=== PATIENT | male | born 1935 ===

== ENCOUNTER 2016-11-09 02:44 | Inpatient (IN) | payer MEDICARE, OTHER ==
--- NOTE | 2016-11-09 03:09 | ER Document Report ---
ED General - General Stated Complaint: WEAKNESS Notes: Patient is an 81-year-old male who presents for complaints of strokelike symptoms. Patient says he woke up with weakness in his legs and difficulty getting out of bed. Patient says his leg weakness is now almost completely resolved and he feels better. Had no other symptoms. Patient says he was admitted to [facility] one week ago with same symptoms. At that time he had a stroke workup which showed evidence of a stroke. An MRI at that time which showed the stroke. He also had carotid Dopplers and says he had the echocardiogram performed. Patient is on a look was. He does have atrial fibrillation. The atrial fibrillation appears to be paroxysmal. Denies any chest pain or shortness of breath. He has no other complaints at this time and says he feels well. He denies headache. - Related Data Allergies/Adverse Reactions: No Known Allergies Allergy (Unverified 11/09/16 03:26) Past Medical History - Social History Smoking Status: Unknown if Ever Smoked Frequency of alcohol use: None Drug Abuse: None Family History: Reviewed & Not Pertinent Review of Systems - Review of Systems Notes: My Normal Review Basic REVIEW OF SYSTEMS: CONSTITUTIONAL : Denies fever, chills, or sweats. Denies recent illness. EENT: Denies eye, ear, throat, or mouth pain or symptoms. Denies nasal or sinus congestion. CARDIOVASCULAR: Denies chest pain. RESPIRATORY: Denies cough, cold, or chest congestion. Denies shortness of breath, difficulty breathing, or wheezing. GASTROINTESTINAL: Denies abdominal pain. Denies nausea, vomiting, or diarrhea. Denies constipation. Last BM: GENITOURINARY: Denies difficulty urinating, painful urination, burning, frequency, or blood in urine. MUSCULOSKELETAL: Denies neck or back pain or joint pain or swelling. SKIN: Denies rash or skin lesions. NEUROLOGICAL: Denies altered mental status or loss of consciousness. Denies headache. Denies weakness or paralysis or loss of use of either side. Difficulty ambulating. ALL OTHER SYSTEMS REVIEWED AND NEGATIVE. Physical Exam - Vital signs Vitals: Pulse Resp BP Pulse Ox 111 H 20 148/72 H 94 11/09/16 02:44 11/09/16 02:44 11/09/16 02:44 11/09/16 02:44 - Notes Notes: General Appearance: Well nourished, alert, cooperative, no acute distress, no obvious discomfort. Well appearing. Vitals: reviewed, See vital signs table. Head: no swelling or tenderness to the head Eyes: PERRL, EOMI, Conjuctiva clear Mouth: No decreasd moisture Throat: No tonsillar inflammation, No airway obstruction, No lymphadenopathy Neck: Supple, no neck tenderness, No thyromegaly Lungs: No wheezing, No rales, No rhonci, No accessory muscle use, good air exchange bilaterally. Heart: Normal rate, irregular rythm, No murmur, no rub Abdomen: Normal BS, soft, No rigidity, No abdominal tenderness, No guarding, no rebound, no abdominal masses, no organomegaly Extremities: strength 5/5 in all extremities, good pulses in all extremities, no swelling or tenderness in the extremities, no edema. Skin: warm, dry, appropriate color, no rash Neuro: speech clear, oriented x 3, normal affect, responds appropriately to questions. Cranial nerves II through XII are intact. Distal sensation intact. Patient moves all extremities without difficulty. Patient is able stand and bear weight on his own without difficulty. Course - Re-evaluation Re-evalutation: 11/09/16 04:56 I did reevaluate the patient. He cases say that his symptoms are gone and he feels well. We're awaiting the CT scan results of his head. - Vital Signs Vital signs: Temp Pulse Resp BP Pulse Ox 97.7 F 111 H 19 148/72 H 94 11/09/16 03:19 11/09/16 02:44 11/09/16 03:00 11/09/16 02:57 11/09/16 03:00 - Laboratory Result Diagrams: 11/09/16 03:08 11/09/16 03:08 Laboratory results interpreted by me: 11/09/16 03:08 Hgb 12.4 L Hct 36.9 L RDW 14.9 H - EKG Interpretation by Me Additional EKG results interpreted by me: 11/09/16 03:26 EKG is reviewed and interpreted by me. EKG shows A. fib with rate of [address] segment elevation or depression. No ischemic T wave inversions. QRS duration is within normal range. QTc interval is prolonged. No old EKG available for comparison. - Transfer of Care Notes: 11/09/16 05:52 Patient says he is feeling better however when I went to reevaluate him and to discharge him and stand him, he was very wobbly on his feet and could not stand up safely on his own. I again asked patient to make sure that he was not like this when he left [facility]. Patient says that he is walking perfectly normal when left [facility] that the symptoms are tonight. She again initially thought using better when he first arrived and seemed well when he first stood up when he first got here however he is reverting back to having difficulty ambulating again. Patient is on TPA candidate. His last known completely normal as 9:30 PM last night. He is also on nonreversible anticoagulants which make him not a TPA candidate. I did talk to patient about admission. I informed him I think it's appropriate to admit him being that he is able stand or walk on his own and the fact that his gait is worsening. Patient does agree to stay in hospital. I did speak with the hospitalist who agrees to admit the patient. Dictation of this chart was performed using voice recognition software; therefore, there may be some unintended grammatical errors. Discharge - Discharge Clinical Impression: Atrial fibrillation Qualifiers: Atrial fibrillation type: chronic Qualified Code(s): I48.2 - Chronic atrial fibrillation TIA (transient ischemic attack) Qualifiers: Transient cerebral ischemia type: unspecified Qualified Code(s): G45.9 - Transient cerebral ischemic attack, unspecified Condition: Good Disposition: ADMITTED INPATIENT Admitting Provider: Hospitalist Unit Admitted: Telemetry
[2016-11-09 03:22] LABS: ABSOLUTE BASOPHILS # (AUTO) 0.1 10^3/uL (0.0-0.2); ABSOLUTE EOSINOPHILS # (AUTO) 0.5 10^3/uL (0.0-0.6); ABSOLUTE LYMPHOCYTES (AUTO) 1.8 10^3/uL (0.5-4.7); ABSOLUTE MONOCYTES (AUTO) 0.8 10^3/uL (0.1-1.4); ABSOLUTE NEUT (AUTO) 5.7 10^3/uL (1.7-8.2); BASOPHILS % (AUTO) 0.9 % (0-2); EOSINOPHILS % (AUTO) 5.9 % (0-6); HEMATOCRIT 36.9 % (37.9-51.0); HEMOGLOBIN 12.4 g/dL (13.5-17.0); HGB HCT DIFFERENCE 0.3; LYMPHOCYTES % (AUTO) 19.9 % (13-45); MEAN CORPUSCULAR HEMOGLOBIN 28.1 pg (27.0-33.4); MEAN CORPUSCULAR HGB CONC 33.6 g/dL (32.0-36.0); MEAN CORPUSCULAR VOLUME 84 fl (80-97); MONOCYTES % (AUTO) 8.8 % (3-13); RED BLOOD COUNT 4.42 10^6/uL (4.35-5.55); RED CELL DISTRIBUTION WIDTH 14.9 % (11.5-14.0); SEGMENTED NEUTROPHILS % (AUTO) 64.5 % (42-78); WHITE BLOOD COUNT 8.9 10^3/uL (4.0-10.5)
[2016-11-09 03:35] LABS: ANION GAP 9 (5-19); BLOOD UREA NITROGEN 15 mg/dL (7-20); CALCIUM 8.9 mg/dL (8.4-10.2); CARBON DIOXIDE 26 mmol/L (22-30); CHLORIDE 104 mmol/L (98-107); CREATININE RESULT 0.89 mg/dL (0.52-1.25); GLUCOSE 79 mg/dL (75-110); POTASSIUM 4.6 mmol/L (3.6-5.0); SODIUM 138.8 mmol/L (137-145)
[2016-11-09 06:12] LABS: ADD ON TESTING BLD IN LAB ACKNOWLEDGE
[2016-11-09 06:18] LABS: PROTHROMBIN TIME 14.3 SEC (11.4-15.4)
[2016-11-09 06:19] LABS: PARTIAL THROMBOPLASTIN TIME 38.9 SEC (23.5-35.8)
[2016-11-09 06:21] LABS: ALANINE AMINOTRANSFERASE 27 U/L (21-72); ALBUMIN 3.5 g/dL (3.5-5.0); ALKALINE PHOSPHATASE 80 U/L (38-126); ASPARTATE AMINO TRANSFERASE 18 U/L (17-59); BILIRUBIN,TOTAL 0.6 mg/dL (0.2-1.3); CHOLESTEROL 115.48 mg/dL (0-200); CREATINE KINASE 48 U/L (55-170); Direct HDL 39 mg/dL (>40); TOTAL PROTEIN 6.2 g/dL (6.3-8.2); TRIGLYCERIDES 92 mg/dL (<150)
[2016-11-09 06:32] LABS: DIRECT LDL 56 mg/dL (<100)
[2016-11-09 06:33] LABS: CREATINE KINASE MB 0.93 ng/mL (<4.55)
[2016-11-09 06:34] LABS: TROPONIN I < 0.012 ng/mL
[2016-11-09] MEDS ORDERED: DEXTROSE 5%-NORMAL SALINE 1,000 ML IV PRN (07:21)
[2016-11-09] MEDS ORDERED: ACETAMINOPHEN 325 MG TABLET PO PRN (07:38)
--- NOTE | 2016-11-09 08:09 | PDOC H&P ---
History of Present Illness Admission Date/PCP: 11/09/16 06:35 PEYTON VANESSA MD [facility] Dr. Kevin Wang, [facility] Dr. Salo Cordon, [facility]--1st appt. pending Patient complains of: strokelike symptoms History of Present Illness: LETICIA LANG is a 81 year old male with underlying hypertension, hypothyroidism, hyperlipidemia, COPD, chronic atrial fibrillation , on amiodarone and Eliquis for same, and type I diabetes mellitus, who presents to the emergency room for evaluation of above complaint. Was hospitalized at [facility] last week for sudden onset of bilateral lower extremity weakness and vision loss in his right eye. Workup there included MRI revealing a left precentral gyrus stroke as well as carotid artery Doppler revealing 50-69% stenosis of the left proximal internal carotid artery. At the time of discharge from [facility], patient states he was ambulating quite well, and had no vision complaints. Written document from [facility] reviewed; had copy. He awoke early this morning with similar complaints of ambulatory dysfunction, but no vision problems. Came to the emergency room for further evaluation. Apparently his symptoms completely resolved initially in the emergency room. However, after CT scan of the brain was obtained which revealed no acute findings, repeat examination in terms of ambulation by the emergency room physician revealed recurrence of his ambulatory dysfunction. Quite unstable on his feet, wobbly. Hospitalist service was then contacted for further evaluation. No vision complaints this time. No other associated symptoms such as headache, chest or abdominal pain. Mild nausea but no vomiting. No diarrhea or dysuria, fever or chills. States he feels fine, with no complaints until he attempts to walk, when he has the wobbly, quite unsteady sensation. Other than as noted above, no history of seizure stroke TIA or mini stroke. Patient has been discussed with emergency room physician who evaluated the patient. . [facility] and are reviewed. X-ray summary results are listed below, with full report(s) reviewed. . EKG reviewed. No old EKG available for comparison. Social history/personal habits: . Has adult children. Retired. No use of alcohol tobacco or illicit drugs. Allergies/adverse reactions NKDA. Home medications are reviewed from a list provided at time of discharge from [facility] last week and are to be reconciled by nursing staff in [facility]. Home medications initially autopopulated into [employer] may not accurately reflect patient's true medications, dosages, and/or frequencies. Compliant with medications. REVIEW OF SYSTEMS: Constitutional: No fever or chills. Eyes: Wears glasses. ENT: No swallowing problems or complaints. Partial hearing loss. Pulmonary: No current complaints. Cardiovascular: No current complaints, including chest pain. Gastrointestinal: See history and present illness. Skin: No current complaints, including rashes. Hematologic: Easy bruising. Neurologic: See history and present illness. Musculoskeletal: No current complaints, including painful joints. Psychiatric: No current complaints, including anxiety or depression. Endocrine: No current complaints, including polyuria. Genitourinary: No current complaints, including dysuria. PHYSICAL EXAMINATION: 5 feet 8 inches tall. 95.8 kg. BMI 32.1 kg/m. Temperature 97.7. Blood pressure 133/68. Pulse 64 and regular. 97% saturation on room air. Respirations are 16 and unlabored. Slightly overweight otherwise well-nourished well-developed elderly male, appearing approximately stated age. Pleasant awake alert and cooperative. No obvious distress other than somewhat anxious. is present at his side; patient approves. Skin is warm and dry. No grossly obvious evidence of rash in areas of skin examined. No subcutaneous nodules palpated. ENT: Hearing grossly normal to normal conversation. Tongue midline on protrusion pink and slightly moist. Eyes: No scleral icterus. Pupils equal and reactive to light at 4 mm. [place] conjunctivae. Neck is supple and nontender to gentle active range of motion and palpation. Midline trachea. No palpable thyroid nodule mass enlargement or tenderness. Lymphatic: No palpable cervical or clavicular nodes. Neck and lymphatic exams limited by patient body habitus. Psychiatric: Reasonable insight into acute and chronic medical issues. Oriented to time location and why here. Lungs: Auscultation reveals clear and equal breath sounds bilaterally. No use of accessory respiratory muscles. Cardiovascular: Heart regular rate and rhythm, without gallop murmur or rub. No carotid or abdominal aortic bruits. No ankle or pedal edema. Faintly palpable dorsalis pedis pulses. Abdomen: soft, somewhat obese, nontender with positive bowel sounds. Unable to adequately evaluate abdomen for masses or organomegaly due to body habitus. Extremities: Feet are warm and dry. No calf tenderness to compression. No grossly obvious visual evidence of calf swelling. Gentle manipulation of lower extremities fails to reveal any obvious evidence of injury or instability to knees hips or ankles. Neurologic: Cranial Nerves II through XII are grossly intact. Light touch intact at face, upper and lower extremities. Motor function of major muscle groups upper and lower extremities 5 over 5 and symmetric. Patellar reflexes absent. Absent Babinski. Past Medical History Cardiac Medical History: Reports: Atrial Fibrillation, Hyperlipidema, Hypertension Denies: Congestive Heart Failure, DVT, Myocardial Infarction, Pulmonary Embolism Pulmonary Medical History: Reports: Chronic Obstructive Pulmonary Disease (COPD) EENT Medical History: Reports: Eyes - Glasses, Ears - Partial hearing loss Denies: Throat Neurological Medical History: Reports: Ischemic CVA - 10/2016--[facility] w/u Denies: Hemorrhagic CVA, Seizures Endocrine Medical History: Reports: Diabetes Mellitus Type 1, Hypothyroidism Denies: Hyperthyroidism Renal/ Medical History: Reports: Other - Prostatic hypertrophy GI Medical History: Denies: Cirrhosis, Gastroesophageal Reflux Disease, Hepatitis, Peptic Ulcer Disease Musculoskeltal Medical History: Reports: None Skin Medical History: Reports: None Denies: Eczema, Psoriasis Psychiatric Medical History: Denies: Alcohol Dependency, Depression, General Anxiety Disorder, Substance Abuse, Tobacco Dependency Hematology: Reports: Other - Easy bruising Infectious Medical History: Denies: Hepatitis B, Hepatitis C Past Surgical History Past Surgical History: Reports: Appendectomy, Cardiac Catheterization, Orthopedic Surgery - Bilateral Knee replacement Social History Information Source: Patient, Emergency Med Personnel, [facility] Records Lives with: Spouse/Significant other Smoking Status: Never Smoker - Significant secondhand smoke exposure while in the service. Frequency of Alcohol Use: None Drugs: None - Advance Directive Resuscitation Status: Full Code Surrogate healthcare decision maker:: Family History Family History: Reviewed & Not Pertinent Parental Family History Reviewed: Yes Children Family History Reviewed: Yes Sibling(s) Family History Reviewed.: Yes Medication/Allergy Home Medications: Atorvastatin Calcium [Lipitor 20 mg Tablet] 20 mg PO QHS #30 tablet 11/09/16 RX: Amiodarone HCl [Pacerone] 200 mg PO DAILY 11/09/16 RX: Apixaban [Eliquis] 5 mg PO BID 11/09/16 RX: Aspirin [Aspir-Low] 81 mg PO DAILY 11/09/16 RX: Finasteride 5 mg PO DAILY 11/09/16 RX: Furosemide 20 mg PO DAILY 11/09/16 RX: Insulin Glargine,Hum.rec.anlog [Lantus Insulin 100 Unit/mL] 20 units SQ QHS 11/09/16 RX: Levothyroxine Sodium [Synthroid] 50 mcg PO DAILY 11/09/16 RX: Metformin HCl [Metformin HCl ER] 500 mg PO BID 11/09/16 Allergies/Adverse Reactions: No Known Allergies Allergy (Unverified 11/09/16 03:26) Physical Exam Vital Signs: Temp Pulse Resp BP Pulse Ox 97.7 F 111 H 19 133/68 H 94 11/09/16 03:19 11/09/16 02:44 11/09/16 06:01 11/09/16 06:01 11/09/16 06:01 Results Impressions: Head CT 11/09/16 03:04 IMPRESSION: No acute intracranial hemorrhage or acute territorial infarct. Chronic changes of atrophy and microvascular ischemia. Assessment & Plan - Diagnosis (1) Acute focal neurological deficit Is this a current diagnosis for this admission?: YesPlan: Patient will be admitted under CVA/TIA protocol. Multiple imaging procedures, intracranial. Limited Permissive hypertension, due to his anticoagulated status. Patient is a full code. I have strongly urged patient not to get out of bed , to avoid a fall with injury.] Knee high SCDs for DVT prophylaxis; with patient anticoagulated on Eliquis, no need for Lovenox or heparin. Impression and plans were discussed with patient, and , both of whom concur. Time spent in evaluation and management of patient: 65 minutes (2) Ambulatory dysfunction Is this a current diagnosis for this admission?: Yes (3) History of CVA (cerebrovascular accident) Is this a current diagnosis for this admission?: Yes (4) Anticoagulated Is this a current diagnosis for this admission?: Yes (5) Atrial fibrillation Qualifiers: Atrial fibrillation type: chronic Qualified Code(s): I48.2 - Chronic atrial fibrillation Is this a current diagnosis for this admission?: YesPlan: Hemodynamically stable at present. Resume home medications as appropriate once these have been reviewed. (6) Diabetes mellitus type 1 Qualifiers: Diabetes mellitus complication status: without complication Qualified Code(s): E10.9 - Type 1 diabetes mellitus without complications Is this a current diagnosis for this admission?: YesPlan: Accu-Cheks with appropriate sliding scale coverage.Resume home medications as appropriate once these have been reviewed. (7) HLD (hyperlipidemia) Qualifiers: Hyperlipidemia type: unspecified Qualified Code(s): E78.5 - Hyperlipidemia, unspecified Is this a current diagnosis for this admission?: YesPlan: Resume home medications as appropriate once these have been reviewed. (8) Hypothyroid Qualifiers: Hypothyroidism type: unspecified Qualified Code(s): E03.9 - Hypothyroidism, unspecified Is this a current diagnosis for this admission?: YesPlan: Resume home medications as appropriate once these have been reviewed. - Inpatient Certification Based on my medical assessment, after consideration of the patient's comorbidities, presenting symptoms, or acuity I expect that the services needed warrant INPATIENT care.: Yes I certify that my determination is in accordance with my understanding of Medicare's requirements for reasonable and necessary INPATIENT services [42 CFR 412.3e].: Yes Medical Necessity: Need Close Monitoring Due to Risk of Patient Decompensation, Need for Neurological Checks, Risk of Complication if Not Cared For in Hospital Post Hospital Care: D/C or Transfer Summary
[2016-11-09 08:31] LABS: APPEARANCE,URINE CLEAR; BILIRUBIN,URINE NEGATIVE (NEGATIVE); GLUCOSE, URINE NEGATIVE (NEGATIVE); KETONES,URINE NEGATIVE (NEGATIVE); LEUKOCYTE ESTERASE,URINE NEGATIVE (NEGATIVE); NITRITE,URINE NEGATIVE (NEGATIVE); PROTEIN,URINE NEGATIVE (NEGATIVE); URINE SPECIFIC GRAVITY 1.005; UROBILINOGEN,URINE NEGATIVE mg/dL (<2.0)
[2016-11-09 09:09] LABS: CREATINE KINASE MB 1.11 ng/mL (<4.55)
[2016-11-09 09:10] LABS: TROPONIN I < 0.012 ng/mL
[2016-11-09] MEDS ORDERED: ASPIRIN 81 MG TABLET, ENT COATED PO SCH (10:00)
--- NOTE | 2016-11-09 11:27 | Physician Advisory Note ---
Physician Advisor ProgressNote .: [facility] I have reviewed the medical record for this patient. Physician Advisor Statement: Nice documentation of chronic type Afib. Possible documentation opportunities if attending agrees: 1. "Medical Necessity" - how different is he currently from baseline? (See below) 2. "cerebrovascular atherosclerosis" 3. "Acute crebrovascular insufficiency" vs "Acute Lt-sided thrombotic [or embolic, or ...] ___ artery* CVA with cerebral infarction, with [findings] , [resolved or improved or persistent] " *Ant/middle/post cerebral , sup cerebellar, or ant/post inf cerebellar artery? As always, if concerned about any unstable VS or abnormal labs, please comment on them & note what doing about them, & please document each day the potential clinical problems you are concerned could occur if pt not kept in hospital for tx at this time. Discussion: 81yo male w/ chronic co-morbidities including chr Afib, HTN, COPD, DM 1, hypothyroidism, already with a cane & 2 types walkers at home, & shower chair, which suggests that baseline function may be impaired. (+)BLE weakness episode 1 wk ago with vision loss Rt eye, with evidence at that point of Lt precentral gyrus CVA & 50-69% Lt proximal ICA stenosis. Per ED note, pt was walking "normally" prior to this - (?"normal", or "baseline impairment"?) - presented 3/13 AM to ED w/weakness in BLEs, difficulty getting out of bed.; sx almost completely resolved in ED initially, then returned. H&P states he has no complaints until he tries to walk, then he gets an unsteady sensation. Dx'd "acute focal neuro deficit". (+) HR 111, Hgb 12.4, EKG with no acute ischemic findings, CT w/chronic microvasc ischemic changes Attending ordered ASA, D5NS @50, I/Os, tele monitoring, aspiration precautions, PT/ST eval.s, camp boss consult, neuro checks, MRI/MRA, cardiac enzymes, swallow eval. Status: Inpatient status, in general, is expected to be for pts with significant medical complexity & intensity of service. Dx.s of Ac Focal Neuro Impairment & Ambulatory Dysfunction are typically Outpt Obs until proven otherwise. Tx/eval so far involves minimal IVF, MRI/-A, PT/ST, ASA, neuro checks. Medicaid pts require an expectation of needing 2 midnights of clinically necessary care/monitoring in order to qualify for Inpatient status; this pt has 0 MNs so far. PT eval states mild discoordination with ambulation, impaired standing, falls risk, mildly ataxic gait pattern, loss of balance but with independent recovery. PT expects pt to go home with HH PT at d/c. Tx in inpatient hospital setting medically reasonable & necessary to protect pt' s health, safety, & medical condition? This is yet to be supported by documentation so far. Appears most appropriate for Outpt Obs for now unless attending finds & documents worsening/new issues that require Inpt status. Thanks for your help with documentation accuracy/specificity improvement! Alyssia Magdaleno MD [facility] Physician Advisor, Fellow of Hospital Medicine
--- NOTE | 2016-11-09 13:50 | EKG REPORT ---
SEVERITY:- ABNORMAL ECG - ATRIAL FIBRILLATION LEFT AXIS DEVIATION PROLONGED QT INTERVAL : Confirmed by: Felecia Jose 09-Nov-2016 13:50:00
[2016-11-09 14:56] VITALS: BP 158/62
--- NOTE | 2016-11-09 16:51 | PDOC DISCHARGE SUMMARY ---
General - Admit/Disc Date/PCP Admission Date/Primary Care Provider: 11/09/16 07:21 PCP: PEYTON VANESSA MD- [facility] Dr. Kevin Wang, [facility] Dr. Salo Cordon, [facility]--1st appt. pending Discharge Date: 11/09/16 - Discharge Diagnosis (1) TIA (transient ischemic attack) Is this a current diagnosis for this admission?: Yes (2) History of CVA (cerebrovascular accident) Is this a current diagnosis for this admission?: Yes (3) Carotid stenosis, left Is this a current diagnosis for this admission?: Yes (4) Vertebral artery aneurysm Is this a current diagnosis for this admission?: Yes (5) Ambulatory dysfunction Is this a current diagnosis for this admission?: Yes (6) Anticoagulated Is this a current diagnosis for this admission?: Yes (7) Atrial fibrillation Is this a current diagnosis for this admission?: Yes (8) Diabetes mellitus type 1 Is this a current diagnosis for this admission?: Yes (9) Hypothyroid Is this a current diagnosis for this admission?: Yes - Additional Information Resuscitation Status: Full Code Discharge Diet: Cardiac, Diabetic Discharge Activity: Activity As Tolerated Home Medications: Amiodarone HCl [Pacerone] 200 mg PO DAILY 11/09/16 Apixaban [Eliquis] 5 mg PO BID 11/09/16 Aspirin [Aspir-Low] 81 mg PO DAILY 11/09/16 Atorvastatin Calcium [Lipitor 20 mg Tablet] 20 mg PO QHS #30 tablet 11/09/16 Finasteride 5 mg PO DAILY 11/09/16 Furosemide 20 mg PO DAILY 11/09/16 Insulin Glargine,Hum.rec.anlog [Lantus Insulin 100 Unit/mL] 20 units SQ QHS Levothyroxine Sodium [Synthroid] 50 mcg PO DAILY 11/09/16 Metformin HCl [Metformin HCl ER] 500 mg PO BID 11/09/16 History of Present Illness Patient complains of: Weakness History of Present Illness: LETICIA LANG is a 81 year old male with underlying hypertension, hypothyroidism, hyperlipidemia, COPD, chronic atrial fibrillation , on amiodarone and Eliquis for same, and type I diabetes mellitus, who presents to the emergency room for evaluation of above complaint. Was hospitalized at [facility] last week for sudden onset of bilateral lower extremity weakness and vision loss in his right eye. Workup there included MRI revealing a left precentral gyrus stroke as well as carotid artery Doppler revealing 50-69% stenosis of the left proximal internal carotid artery. At the time of discharge from [facility], patient states he was ambulating quite well, and had no vision complaints. Written document from [facility] reviewed; had copy. He awoke early this morning with similar complaints of ambulatory dysfunction, but no vision problems. Came to the emergency room for further evaluation. Apparently his symptoms completely resolved initially in the emergency room. However, after CT scan of the brain was obtained which revealed no acute findings, repeat examination in terms of ambulation by the emergency room physician revealed recurrence of his ambulatory dysfunction. Quite unstable on his feet, wobbly. Hospitalist service was then contacted for further evaluation. No vision complaints this time. No other associated symptoms such as headache, chest or abdominal pain. Mild nausea but no vomiting. No diarrhea or dysuria, fever or chills. States he feels fine, with no complaints until he attempts to walk, when he has the wobbly, quite unsteady sensation. Hospital Course Hospital Course: Patient was admitted for continued weakness after recently being discharged from the [facility] [place] At that time he was diagnosed with left precentral gyrus ischemic stroke. He was started at that time on aspirin 81 mg daily in addition to his previous home medication of Eliquis 5 mg twice daily. He was found to have left 50-69% carotid stenosis. He was referred at that time to see a neurologist but has not yet seen this provider. During hospitalization at our facility we performed head CT which showed no acute process. MRI of the brain showed microvascular ischemic changes but no acute process. 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 These findings were discussed with Dr. Houser of neurosurgery at [facility]. He states that his partner Dr. Jose J Garcia will need to see the patient in follow-up for left carotid stenosis and right vertebral artery aneurysm. I specifically asked if patient should continue on Eliquis and I was advised by Dr. Houser of neurosurgery to maintain patient on Eliquis and low-dose aspirin. Patient's cholesterol panel showed normal total cholesterol, normal LDL, low HDL. In light of the fact that patient has had a stroke and known carotid stenosis I have discussed statin therapy with patient. He is in agreement with initiation of Lipitor 20 mg daily. Patient was evaluated by physical therapy and is stable for discharge home with rolling walker and home physical therapy. Patient already has a rolling walker at home. Physical Exam Vital Signs: Temp Pulse Resp BP Pulse Ox 98.1 F 65 19 158/62 H 97 11/09/16 14:54 11/09/16 14:54 11/09/16 14:54 11/09/16 14:54 11/09/16 14:54 Intake & Output 11/08/16 11/09/16 11/10/16 06:59 06:59 06:59 Weight 82.2 kg GENERAL: No acute distress HEENT: Conjunctiva clear, nonicteric, moist mucous membranes, no JVD, midline trachea RESPIRATORY: Clear to auscultation bilaterally, no wheezes, no rhonchi CARDIAC: Irregular ABDOMEN: Soft, nondistended, nontender, positive bowel sounds, no rebound, no guarding EXTREMETIES: No edema, cyanosis, clubbing NEUROLOGIC: Alert, oriented to person/place/time, CN's grossly intact, no focal deficits SKIN: No rash, wounds PSYCH: Normal mood, normal affect Results Laboratory Results: 11/09/16 08:00 Urine Color STRAW Urine Appearance CLEAR Urine pH 7.0 Ur Specific [place] 1.005 Urine Protein NEGATIVE Urine Glucose (UA) NEGATIVE Urine Ketones NEGATIVE Urine Blood NEGATIVE Urine Nitrite NEGATIVE Ur Leukocyte Esterase NEGATIVE 11/09/16 11/09/16 08:07 08:07 Creatine Kinase 45 L CK-MB (CK-2) 1.11 Troponin I < 0.012 Impressions: Head MRI 11/09/16 00:00 IMPRESSION: MINIMAL MICROVASCULAR ISCHEMIC CHANGE. OTHERWISE NORMAL STUDY. Head CT 11/09/16 03:04 IMPRESSION: No acute intracranial hemorrhage or acute territorial infarct. Chronic changes of atrophy and microvascular ischemia. 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 Qualifiers PATEINT BEING DISCHARGED WITH ANY OF THE FOLLOWING DIAGNOSIS?: No Plan Discharge Plan: Follow-up with neurosurgery as mentioned above. Follow-up with primary care provider. Follow-up with pastry cook as scheduled. Time Spent: Less than 30 Minutes
== END 2016-11-09 18:35 | disposition home or self-care (01) | DRG 69 ==
LOC: ER 02:44 → UNDOADMIN 06:35 → EH 06:35 → 3W 14:02
PROVIDERS: ADMIT Family Medicine; ATTEND Family Medicine
DX: G45.9 Transient cerebral ischemic attack, unspecified (principal); I48.91 Unspecified atrial fibrillation; E03.9 Hypothyroidism, unspecified; I72.6 Aneurysm of vertebral artery; N40.0 Benign prostatic hyperplasia without lower urinary tract symptoms; I48.2 Chronic atrial fibrillation; E10.9 Type 1 diabetes mellitus without complications; E78.5 Hyperlipidemia, unspecified; J44.9 Chronic obstructive pulmonary disease, unspecified; Z96.653 Presence of artificial knee joint, bilateral; I65.22 Occlusion and stenosis of left carotid artery; Z86.73 Personal history of transient ischemic attack (TIA), and cerebral infarction without residual deficits; Z79.4 Long term (current) use of insulin; Z79.01 Long term (current) use of anticoagulants; Z79.02 Long term (current) use of antithrombotics/antiplatelets
CPT/HCPCS: 36415; 70450; 70544; 70551; 80048; 80061; 80076; 81001; 82550; 82553; 82962; 84484; 85025; 85610; 85730; 93005; 93010; 99285; G8978-GP; G8979-GP